=== PATIENT | female | born 1955 | race Caucasian/White ===

== ENCOUNTER → 2017-02-16 | Outpatient (CLI) | payer BC | END | disposition home or self-care (01) | LOC: CVU 06:55 | PROVIDERS: ATTEND Internal Medicine Cardiovascular Disease | DX: I34.0 Nonrheumatic mitral (valve) insufficiency (principal); I86.8 Varicose veins of other specified sites; I10 Essential (primary) hypertension; R63.4 Abnormal weight loss | CPT/HCPCS: 93306; 93975 ==

== ENCOUNTER → 2017-06-10 | Outpatient (CLI) | payer BC | END | disposition home or self-care (01) | LOC: CFH 06:39 | PROVIDERS: ATTEND Family Medicine | DX: N20.0 Calculus of kidney (principal); R63.4 Abnormal weight loss | CPT/HCPCS: 71046; 76700 ==

== ENCOUNTER 2018-06-17 11:23 | Emergency (ER) | payer BC ==
[~2018-06-17] VITALS: Ht 172.7 cm; Wt 66.8 kg
[2018-06-17 12:05] LABS: BASOPHILS # (AUTO) 0.02 x10^3/uL (0-0.1); BASOPHILS % (AUTO) 0 % (0-1); EOSINOPHILS # (AUTO) 0.17 x10^3/uL (0-0.4); EOSINOPHILS % (AUTO) 2 % (1-7); LYMPHOCYTES % (AUTO) 27 % (22-44); MD NO; MEAN CORPUSCULAR HEMOGLOBIN 31.4 pg (27.0-34.8); MEAN CORPUSCULAR HGB CONC 33.8 g/dL (32.4-35.8); MEAN CORPUSCULAR VOLUME 92.9 fL (80-100); MEAN PLATELET VOLUME 8.9 fL (7.4-10.4); MONOCYTES # (AUTO) 0.37 x10^3/uL (0.2-0.8); MONOCYTES % (AUTO) 5 % (2-9); NEUTROPHILS # (AUTO) 4.58 x10^3/uL (1.8-6.8); NEUTROPHILS % (AUTO) 65 % (42-75); PLATELET COUNT 203 x10^3/uL (130-400); RED CELL DISTRIBUTION WIDTH 13.9 % (9.6-15.2)
[2018-06-17 12:17] LABS: ALBUMIN 4.2 g/dL (3.4-5.0); ANION GAP 3 mmol/L (5-15); CALCIUM 9.1 mg/dL (8.5-10.1); CHLORIDE 111 mmol/L (98-107); CREATININE 0.97 mg/dL (0.55-1.02)
[2018-06-17 12:21] LABS: TROPONIN I < 0.015 ng/mL (0.000-0.045)
--- NOTE | 2018-06-17 14:06 | NUR ---
ASSUMED CARE. PLACED ON MONITOR. PT STATES THAT SHE IS FEELING LIGHTHEADED AND BP HIGH SO CAME TO ER
[2018-06-17] MEDS ORDERED: LOSARTAN 25MG TABLET PO ONE (14:30)
--- NOTE | 2018-06-17 14:49 | NUR ---
MEDICATION REQUESTED FROM PHARMACY.
--- NOTE | 2018-06-17 15:18 | NUR ---
MEDICATED PER ORDERS AND AMBULATED TO BATHROOM, STEADY GAIT
[2018-06-17 15:47] VITALS: BP 167/88
== END 2018-06-17 16:51 | disposition home or self-care (01) ==
LOC: ED 14:52
DX: I10 Essential (primary) hypertension (principal)
CPT/HCPCS: 36415; 71045; 80048; 82040; 84484; 85025; 93005; 99284